=== PATIENT | female | born 1965 ===

== ENCOUNTER 2018-09-04 08:09 | Day surgery (SDC) | payer BC ==
[2018-09-02 13:21] VITALS: BMI 25.8
[2018-09-04] MEDS ORDERED: ceFAZolin IV 1 gm in Dextrose 2 GM/100 ML BAG IVPB ONE ×2 (10:57→14:27)
[2018-09-04] MEDS ORDERED: Propofol 10 mg/ml Inj (20 ML) ONE (11:02)
[2018-09-04] MEDS ORDERED: Midazolam 2 MG/2 ML VIAL ONE (11:02)
[2018-09-04] MEDS ORDERED: Rocuronium 10 mg/ml (5 ml) ONE (11:04)
[2018-09-04] MEDS ORDERED: Succinylcholine Chloride 20 mg/ml Syr (5 ml) IV ONE (11:04)
[2018-09-04] MEDS ORDERED: EPINEPHrine 1:1000 Nasal Sol(30mL) ONE (11:29)
[2018-09-04] MEDS ORDERED: Bacitracin 50,000 UNIT in Sodium Chloride 0.9% Irrig 1,000 ML IR SCH (13:01)
[2018-09-04] MEDS ORDERED: Morphine 4 MG/ML VIAL ONE (14:53)
[2018-09-04] MEDS ORDERED: Oxycodone/Acetaminophen 5/325 mg Tab PO PRN (15:10)
[2018-09-04] MEDS ORDERED: HYDROmorphone 0.5 mg/0.5 ml ISec IVP PRN (15:12)
[2018-09-04] MEDS ORDERED: Lactated Ringer's 1,000 ML IV ONE (15:12)
[2018-09-04] MEDS ORDERED: Midazolam 2 MG/2 ML VIAL IVP PRN (15:14)
[2018-09-04] MEDS ORDERED: Bupivacaine 0.25% 20 ML INJ IJ ONE ×2 (15:22→15:28)
[2018-09-04] MEDS ORDERED: HYDROmorphone 0.5 mg/0.5 ml ISec ONE (15:28)
--- NOTE | 2018-09-04 15:49 | PCM.ANESB7 ---
Adductor Canal Block - Adductor Canal Block Date of Procedure: 09/04/18 Anesthiologist: kaitlin Pre-Procedure Diagnosis: left knee allograft transplant Procedure Performed: Adductor Canal Block Left - Procedure Adductor Canal Block: The procedure was explained to the patient that it is for the post-operative pain management. Consent was obtained after a thorough discussion with the patient regarding the benefits and possible complications of local anesthetic adductor canal block of the femoral nerve. Standard monitors, as defined by the ASA, were applied to the patient. Time-out was held with the circulating nurse to confirm the appropriate block. After applying supplemental oxygen and administering IV Sedation as needed, the patient was placed in supine position with and the operative leg was flexed slightly at the knee and externally rotated as needed, and was kept anatomically stable. The mid-thigh of the ____left____ lower extremity was exposed. The ultrasound transducer was then applied transversely along the medial aspect, about midway down the thigh and the femoral artery and vein were identified in appropriate relation with the sartorius muscle. At this time, the femoral nerve was visualized lateral to the femoral artery within the canal. After thorough identification, this area area was prepped with Chloroprep solution three times and 1 % Lidocaine was injected subcutaneously for topical anesthesia. At this point, a #22 gauge Stimuplex 4-inch needle was inserted in-plane in a cjospyr-[id number]-suipse orientation, and advanced toward the femoral nerve. Advancement was performed carefully under direct ultrasound visualization. After negative aspiration, __5___cc of __.25___% ___bupivicaine was injected and this was followed with ___20__ cc of __.25 % bupivicaine . Under ultrasound guidance the local anesthetics were observed spreading around the femoral nerve. The needle was removed intact and sterile dressing was applied. The patient had stable vital signs, was conscious and in no apparent distress. The patient tolerated the femoral nerve block well with stable vital signs and was prepared for subsequent surgery
[2018-09-04 17:46] VITALS: TEMP 97.7; O2SAT 99
[2018-09-04] MEDS ORDERED: ceFAZolin 2 GM in Sodium Chloride 0.9% 50 ML IVPB SCH (18:00)
[2018-09-04 18:45] VITALS: BP 94/56; PULSE 87; RESP 20
--- NOTE | 2018-09-09 08:39 | PCM.SURG1 ---
Surgeon's Initial Post Op Note - Surgeon's Notes Surgeon: Karri Estrada MD Field Service Supervisor: Damian Resendiz PA-C Type of Anesthesia: General Endo, [facility] Pre-Operative Diagnosis: Left knee #1 medial femoral condyle cartilage loss. #2 medial tibial plateau cartilage loss. #3 s/p diagnostic arthroscopy w/ partial medial menisectomy, lateral mensical repair, extensive synovectomy (resection plica & fat pad), PRP injection 07/24/18 Operative Findings: Left knee: #1 medial femoral condyle cartilage loss (weight bearing aspect measuring 22mm AP x 10mm width). #2 medial tibial plateau cartilage loss (anterior medial aspect tibial plateau measuring [id number]. #3 s/p diagnostic arthroscopy w/ partial medial menisectomy, lateral mensical repair, extensive synovectomy (resection plica & fat pad), PRP injection 07/24/18. #4 new medial meniscal tears. #5 stable lateral mensical repair. #6 synovitis all 3 compartments Post-Operative Diagnosis: Left knee: #1 medial femoral condyle cartilage loss (weight bearing aspect measuring 22mm AP x 10mm width). #2 medial tibial plateau cartilage loss (anterior medial aspect tibial plateau measuring [id number]. #3 s/p diagnostic arthroscopy w/ partial medial menisectomy, lateral mensical repair, extensive synovectomy (resection plica & fat pad), PRP injection 07/24/18. #4 new medial meniscal tears. #5 stable lateral mensical repair. #6 synovitis all 3 compartments Operation Performed: Left knee: #1 diagnostic arthroscopy. #2 arthroscopic partial medial menisectomy. #3 arthroscopic extensive synovectomy & debridement with lysis of adhesions. #4 Open osteochondral allograft transplant to MFC ([employer]). #5 Open osteochondral allograft OATS to medial tibial plateau Specimen/Specimens Removed: specimen= none. tourniquet time= 0min. complications= none. implants= JRF/Arthrex allograft left knee medial femoral condyle fresh (all osteochondral allograft implants/ transplants harvested from the same 1 condyle donor). 1cc DBM allograft putty bone graft Estimated Blood Loss: EBL {In ML}: 50 Blood Products Given: N/A Drains Used: No Drains Post-Op Condition: Good Date of Surgery/Procedure: 09/04/18 Time of Surgery/Procedure: 15:00
--- NOTE | 2018-09-10 01:17 | OP ---
PROCEDURE DATE: 09/04/2018 PREOPERATIVE DIAGNOSES: Left knee: 1. Medial femoral condyle full-thickness chondral defect at weightbearing surface. 2. Medial tibial plateau full-thickness cartilage defect. 3. Status post diagnostic arthroscopy with partial medial meniscectomy, lateral meniscal repair, extensive synovectomy including resection of symptomatic plica and inflamed fat pad, PRP injection on 07/24/2018 by myself. POSTOPERATIVE DIAGNOSES: Left knee: 1. Medial femoral condyle full-thickness cartilage defect (weightbearing zone measuring 22 mm anterior and posterior by 10 mm width). 2. Medial tibial plateau full-thickness cartilage loss (anteromedial aspect of the tibial plateau measuring 10 mm x 10 mm). 3. Status post diagnostic arthroscopy with partial medial meniscectomy, lateral meniscal repair, extensive synovectomy, PRP injection on 07/24/2018. 4. New medial meniscal tear. 5. Stable lateral meniscal repair. 6. Synovitis in all three compartments. PROCEDURES: Left knee: 1. Diagnostic arthroscopy. 2. Arthroscopic partial medial meniscectomy. 3. Arthroscopic extensive synovectomy and debridement with lysis of adhesions. 4. Open osteochondral allograft transplant to medial femoral condyle (BioUni). 5. Open osteochondral allograft OATS to medial tibial plateau. SURGEON: Karri Estrada MD AGRICULTURAL REAL ESTATE AGENT: Damian Resendiz PA-C JUSTIFICATION FOR AGRICULTURAL REAL ESTATE AGENT: Damian Resendiz is a certified physician showroom sales assistant whose skilled surgical services were an absolute necessity for successful completion of the procedure as he provided skilled surgical assistance with surgical exposure, preparation of allograft BioUni and allograft OATS plug for medial femoral condyle and medial tibial plateau respectively, preparation of recipient area of medial femoral condyle and medial femoral plateau, handling of arthroscopic equipment, facilitating arthroscopic procedures, placement and transplant of osteochondral allograft transplantation/BioUni/allograft OATS to medial femoral condyle and medial tibial plateau and final fixation of both grafts, wound closure, fitting and placement of postop hinged knee brace. Damian Resendiz was present for the entire case and was an absolute necessity for successful completion of the procedure. ANESTHESIA: General endotracheal anesthesia. COMPLICATIONS: None. SPECIMEN: None. TOURNIQUET TIME: Zero minutes. IMPLANTS: 1. JRF allograft to left knee medical femoral condyle, fresh allograft. 2. Arthrex allograft transplantation system and use of biocompression screws x3 for medial femoral condyle fixation support/augmentation; 26 mm length, 26 mm length and 24 mm length; placement of one biocompression screw for the tibial allograft OATS fixation, 24 mm in length. 3. Arthrex Chondral Dart x1 for medial femoral condyle periphery fixation. 4. [facility] foundation 1 mL DBM allograft, bone graft putty used to backup tibial allograft OATS fixation. ESTIMATED BLOOD LOSS: 50 mL. DRAINS: None. DISPOSITION: The patient was extubated and transferred to PACU in stable condition having tolerated the procedure well. INDICATIONS FOR SURGERY: The patient is a 52-year-old female with a past medical history significant for asthma, who initially presented to my office for the first time under my care on 08/19/2017 with significant right greater than left knee pain initially. The right knee was diagnosed with DJD and treated with conservative treatment including multiple cortisone injections and hyaluronic acid injection series with moderate improvement in pain and satisfactory outcome for the patient. The right knee eventually will need a total knee arthroplasty. The left knee pain continued despite cortisone injection and conservative treatment over the span of almost one year. Conservative treatment included bracing, multiple rounds of physical therapy, antiinflammatory medications including Mobic, antiinflammatory cream, multiple cortisone injections and hyaluronic acid injections. X-rays in the office of the left knee showed that the medical joint space was still well maintained. MRI of the left knee done at [facility] on 02/27/2018 was read as; 1. Complex tear of posterior horn and body of medial meniscus. 2. Grade II sprain of ACL and grade I sprain of MCL. 3. Oblique tear within of the body of lateral meniscus. 4. Small joint effusion. Small Guzman's cyst. 5. Mild articular chondrosis, most pronounced medially. 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 and has had increasing difficulty at work due to her left knee pain with significant dysfunction. The pain became a significant negative impact on her quality of life despite our best conservative treatment measures and compliance with conservative treatment and recommendations as outlined above. She was indicated initially for left knee arthroscopic surgery including arthroscopic meniscus repair versus partial meniscectomy, extensive synovectomy, chondroplasty/microfracture with the assessment of chondral surface with possible feature joint preservation procedures including osteochondral allograft transplantation as indicated. She underwent the procedure on 07/24/2018 at [facility] under my care with the surgery being left knee arthroscopy. 1. All end side lateral meniscus repair. 2. Partial medial meniscectomy. 3. Chondroplasty and microfracture of the medial femoral condyle and medial tibial plateau zone of chondral injury/full-thickness cartilage loss. 4. Chondroplasty of patella. 5. Extensive synovectomy of all three compartments. 6. Debridement and resection of hypertropic/inflamed fat pad. 7. Debridement and resection of symptomatic medial and lateral plica bands. 8. Intraarticular PRP injection. During the diagnostic portion of the procedure, it was identified that there was a large zone of full thickness cartilage loss at the weightbearing aspect of the medial femoral condyle measuring 10 mm in width by 22 mm anterior to posterior as well as a second lesion at the anteromedial aspect of the tibial plateau measuring approximately 10 mm x 10 mm. To ensure best outcome regardless microfracture, it was carried out for both lesions and the patient tolerated that procedure well and recovered well. She progressed well with physical therapy and was able to regain her range of motion within four weeks postop. During her followup visits at the office, we discussed how to approach the full thickness cartilage injury to avoid future knee replacement in the immediate future as well as preserve her knee joint as much as possible. We discussed the benefits of osteochondral allograft transplantation as the rest of her knee appeared to be in good condition. After having multiple discussions about the procedure and watching surgical animation videos and diagnosis animation videos and discussing the risks and benefits and alternative of the procedure at length with the patient and her , she decided that she would like to pursue the osteochondral allograft transplantation to the medial femoral condyle and the medial tibial plateau as soon as possible during her recovery from surgery overall so that she can return to work and her active lifestyle as soon as possible. She was indicated for left knee diagnostic arthroscopy and all related indicated arthroscopic procedures as well as open osteochondral allograft transplantation to medial femoral condyle in the form of a BioUni construct as well as open osteochondral allograft transplant to the medial tibial plateau in the form of an allograft OATS transplantation. The risks, benefits and alternatives to the procedure were discussed at length with the patient, with the risks including but not limited to infection, neurovascular damage, failure of graft, failure of fixation, need for further surgery, resulting total knee arthroplasty regardless in the future, development of chronic pain and disability, development of blood clots including DVT and PE, need for further surgery, anesthesia reactions including , inability to return to preinjury and presurgical level of activity including her current occupation. After answering all of her questions, she stated that she understood the risks and wished to proceed with surgery. She was referred to her primary care physician for preoperative medical clearance and the procedure was scheduled at [facility] on 09/04/2018 after the grafts were obtained. PROCEDURE IN DETAIL: The patient was identified in the preoperative holding area and the left knee was marked for surgery. Once again as described above, the risks, benefits and alternatives of the procedure were discussed at length with the patient and informed consent was obtained. After a brief discussion with anesthesia staff, the patient was taken to the operating room and placed on the well-padded operating room table with all bony prominences and superficial neurovascular structures well padded. Initial time-out was done with the surgeon, anesthesia staff, OR staff, all in agreement with the patient, procedure being done and the extremity to be operated on. Perioperative IV antibiotics in the form of 2 g of Ancef were administered, and the patient was placed under general anesthesia without difficulty or complication. Examination under anesthesia was then carried out. Examination under anesthesia: Left knee with no swelling, no warmth, no erythema; arthroscopic portals anterolateral and anteromedial healing well; mildly limited range of motion compared to contralateral knee from 0 degree extension to 120 degree flexion; no evidence of instability with negative anterior drawer, negative posterior drawer, negative Hilary, negative reverse Hilary, negative pivot shift, negative reverse pivot shift, negative opening to medial lateral joint line to 0 to 30 degrees on varus and valgus stress, negative posterolateral corner drawer test, negative dial test, patella with normal tracking and no evidence of instability. Throughout range of motion at the medial joint line, there was a clunk or click that was appreciated, which was attributed to the zone of cartilage injury. The left lower extremity was prepped and draped in the standard sterile fashion after a tourniquet was placed high on the left thigh but never inflated. A final time-out was done with the surgeon, anesthesia staff, OR staff, all in agreement with the patient, procedure being done and the extremity being operated on. A 50 mL of normal saline was used to insufflate the knee joint. The previous anterolateral portal was utilized again with stab incision through the skin down to the subcutaneous tissue down to the level of the capsule. Arthroscopic trocar and cannula were inserted into the suprapatellar pouch. The knee was then insufflated with arthroscopic fluid, and the arthroscopic camera was inserted. With the use of spinal needle localization, the previous anteromedial portal was utilized again with stab incision through the skin down to the subcutaneous tissue down to the level of the capsule, and an accessory cannula was inserted and the knee joint was copiously irrigated for better visualization. With the use of an arthroscopic probe, a diagnostic arthroscopy was then carried out. Attention was first turned towards the suprapatellar pouch and there was evidence of some adhesions. 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 Attention was then turned towards the medial gutter, where the previous symptomatic medial plica band was successfully resected and was no longer present. Attention was then turned towards the medial compartment, where immediately seen was the zone of full-thickness cartilage injury at the weightbearing aspect of the medial femoral condyle measuring 22 mm from anterior to posterior and 10 to 12 mm in width. Some areas of the previous microfracture did appear to show some fibrocartilage growth, but there was still exposed 70% subchondral bone throughout the lesion compared to 07/24/2018 visualization. The anteromedial aspect of the tibial plateau also exhibited a 10 mm x 10 mm region of full thickness cartilage loss just adjacent to the anterior horn of the medial meniscus. The medial meniscus at its mid body and posterior horn exhibited a secondary free edge complex tearing that was not amenable to repair. Attention was then turned towards the notch, where intact ACL and PCL were seen. Attention was then turned towards the lateral compartment, where an intact all-inside lateral meniscus repair appeared to stable and well scarred in with good evidence of healing. The chondral surface of the lateral femoral condyle, lateral tibial plateau and the lateral compartment in general appeared to be intact and pristine. With the use of arthroscopic shaver and radiofrequency ablation, an extensive synovectomy was carried out including lysis of adhesions while maintaining good hemostasis. Arthroscopic extensive synovectomy and lysis of adhesions: With the use of arthroscopic shaver and radiofrequency ablation, an extensive three-compartment synovectomy was carried out, beyond what was considered usual and customary for better visualization during arthroscopic procedures to remove the inflamed synovial lining and possible pain generators while maintaining good hemostasis in all three compartments. At the suprapatellar pouch, there were also some adhesions and arthroscopic lysis of adhesions were carried out with the use of arthroscopic shaver and radiofrequency ablation while maintaining good hemostasis as part of the extensive synovectomy. Once the suprapatellar adhesions were resected, the knee was able to flex past 140 degrees. Arthroscopic partial medial meniscectomy: With the use of arthroscopic shaver and radiofrequency ablation as well as meniscal biters, a partial medial meniscectomy was carried out of the posterior horn of the medial meniscus removing an additional 5% overall of the medial meniscus with greater than 60% of the medial meniscus being present overall while maintaining good joint preservation technique. Once smooth contour to the medial meniscus was obtained with a stable posterior horn and an anterior horn, we then turned our attention to the open part of the procedure. Open osteochondral allograft transplantation to the medial femoral condyle and medial tibial plateau: The anteromedial portal was expanded proximally as a medial parapatellar approach approximately 5 cm in length. An incision was made to the skin down to the subcutaneous tissue while maintaining good hematosis down to the level of the medial retinaculum. Medial retinaculum was sharply incised from the equator of the patella down along the inferior pole of the patella to the medial aspect of the patellar tendon down to the tibial tuberosity giving plenty of access to the medial compartment of the knee joint for both transplantation techniques. With retractors in place, we were able to visualize the entire medial femoral condyle in high flexion exposing the zone of full thickness cartilage injury. Sizers from the BioUni tray from Arthrex were used and the correct oval size was identified for this lesion while maintaining good stability and intact cortical rim surrounding the transplant. The fresh left knee medial femoral condyle allograft provided by [facility] was then brought to the surgical filed and cleansed. The appropriate corresponding location of the chondral injury on the recipient was identified on the donor with the correct sizer being the 17 X sizer. The 17 X sizer was then used to score the donor osteochondral allograft and a 17 X size oval osteochondral donor allograft specimen was obtained from the donor condyle successfully. Once the osteochondral allograft was successfully harvested, we then prepared the recipient site. Again, with the same 17 X sizer covering the lesion in its eternity, we were able to prepare the recipient site utilizing the Arthrex BioUni technique tray, ensuring a 10 mm depth throughout the entire aspect of the BioUni transplantation. Once the recipient site was prepared to completion and any interposing soft tissue debris or cartilage debris was removed, we were then able to transplant the entire oval 17 X size allograft BioUni osteochondral transplantation and impacted into position appropriately with good fit achieved and stability. Due to the size of the implant, I decided to back it up with biocompression screws. Placement of one biocompression screw could result in seesaw; placement of two biocompression screws, I did not believe, was adequate; therefore, three biocompression screws were placed at the superior, at the inferior and at the mid point of the allograft transplantation. Two 26 mm length biocompression screws from Arthrex were placed successfully at the mid point and at the superior aspect of the graft with good fixation achieved. One 24 mm length biocompression screws were placed at the inferior aspect of the graft. The construct was tested and indeed the stability was phenomenal. At the surrounding rim of the graft at its medial aspect, there was one zone of loose cartilage from the recipient that was not adherent to the donor cartilage and one chondral dart from Arthrex was used to secure this periphery as well as a Vicryl suture through to the graft to the periphery ensuring that there would be continuity of cartilage at the medial rim of the graft. Once the medial femoral condyle transplantation was complete, we then turned our attention to the medial tibial plateau. With the retractors in place, we were able to expose the chondral defect just posterior or adjacent to the anterior horn of the medial meniscus. A 10 mm OATS sizer was then used to size the defect. Using the OATS transplantation kit, we then removed a 10 mm plug with 10 mm depth from the same femoral condyle donor and transplanted it to the full thickness cartilage zone of injury at the anteromedial aspect of the tibial plateau after preparing the recipient site. The plug was then transplanted and fixated into a good position. Due to the desire to weightbear the patient and advance her therapy as quick as possible, the OATS plug was backed up with a 26 mm length biocompression screw as well with good fixation achieved. The knee was then copiously irrigated and the retinaculum was reapproximated with #1 Vicryl suture and some alternating #2 FiberWire sutures. The MPFL was reinforced and repaired as well at the medial aspect of the patella and we ensured that the patella tracked normal with no evidence of instability from the surgical exposure despite best efforts to stay below the equator of the patella. Again, there was no resulting patellar instability from our surgical exposure, and to back up the MPFL attachment, the MPFL was reinforced and plicated as part of the retinacular repair and closure for the knee. Once the retinacular repair was complete, subcutaneous tissue was reapproximated with #1 and 2-0 Vicryl suture, and Monocryl suture was used for reapproximation of skin. The arthroscopic camera was then inserted into the knee joint gain for direct arthroscopic visualization of the osteochondral allograft transplantation to the medial femoral condyle as well as the medial tibial plateau. The grafts were visualized and indeed were found to be flushed with surrounding cartilage with good positioning and remarkable difference of appearance of the knee arthroscopically before and after the transplantation with what appeared to be intact medial femoral condyle at this point in time. With the use of arthroscopic shaver, final extensive synovectomy carried out removing any bony debris and loose tissue as well as inflamed synovium while maintaining good hemostasis. All arthroscopic fluids were then removed from the knee joint with the help of anesthesia staff; 10 mL of PRP was obtained through a peripheral stick using the Arthrex Centrifuge and injected intraarticularly under direct arthroscopic visualization. The anterolateral portal was then reapproximated with 2-0 Vicryl suture followed by 3-0 Monocryl suture for the skin. Sterile dressings were applied followed by a layer of sterile cast padding from the toes up to the superior thigh followed by a layer of compressive Octavio wrap from the toes up to the superior thigh. The knee was then fitted in place in a postop hinged knee brace provided by my office. The patient was then extubated and transferred to the PACU in stable condition having tolerated the procedure well. JUSTIFICATION AND REASONING FOR BILLING AND CODIN. Open osteochondral allograft transplantation in the form of BioUni was carried successfully through the medial femoral condyle and therefore was coded and billed. 2. Open osteochondral allograft transplantation was also carried out to the medial tibial plateau as a separate part of the procedure and therefore was coded and billed using a separate allograft transplantation technique. 3. Arthroscopic partial medial meniscectomy was carried out successfully and therefore was coded and billed. 4. Arthroscopic extensive synovectomy of all three compartments including lysis of adhesions was carried out, beyond what was considered usual and customary for better visualization and required significant surgical time to benefit the patient's rehab and therefore was coded and billed. 5. Intraarticular PRP injection was carried out at the end of the procedure and therefore was coded and billed. 6. A postop hinged knee brace was provided by my office and fitted in place on the patient as a new brace with the previous brace being significantly damaged throughout her rehab process as she had been wearing it for six weeks. Therefore, a new postop hinged knee brace provided by my office was coded and billed. DISPOSITION: The patient will be discharged home once she has recovered from anesthesia. She will follow up in my office at [facility] within one week and already has a postoperative appointment set up. She was given a prescription for Percocet for pain control. She has also filled the prescription for Lovenox 40 mg subcutaneous injection once daily for two weeks starting postoperative day #1 as DVT prophylaxis. She will be weightbearing as tolerated to the left lower extremity with the brace on locked in extension. When she is not ambulating, she can unlock the brace and work on range of motion, and she will be referred to start physical therapy as soon as possible to regain her range of motion and function. Karri Estrada MD
== END 2018-09-04 20:05 | disposition home or self-care (01) ==
LOC: C.SDS 08:09 → C.OPSURG 08:09 → C.SDS 20:05
PROVIDERS: ATTEND Student in an Organized Health Care Education/Training Program
DX: M94.262 Chondromalacia, left knee (principal); M93.262 Osteochondritis dissecans, left knee; S83.232A Complex tear of medial meniscus, current injury, left knee, initial encounter
CPT/HCPCS: 29867; 29876; 29881; C1713; C1776; J0131; J0690; J1100; J1170; J2001; J2250; J2270; J2704; J2765; J3010; J7120